=== PATIENT | male | born 1960 | race Caucasian/White ===

== ENCOUNTER 2019-07-05 08:50 | Day surgery (SDC) | payer OTHER ==
[~2019-07-05 08:50] MED LIST: Dextrose 5%-0.45% NaCl 1,000 ML IV SCH; Midazolam 1 MG/ML 2 ML SDV ONE; fentaNYL 100 MCG/2 ML SDV ONE
[2019-07-05] MEDS ORDERED: Lidocaine 1% 30 ML SDV INJECT ONE ×2 (08:51→10:52)
[2019-07-05] MEDS ORDERED: fentaNYL 100 MCG/2 ML SDV IV ONE ×4 (08:51→09:56)
[2019-07-05] MEDS ORDERED: Midazolam 1 MG/ML 2 ML SDV IV ONE ×8 (08:51→09:54)
[2019-07-05] MEDS ORDERED: Lidocaine 1% 30 ML SDV ONE (10:45)
--- NOTE | 2019-07-05 10:58 | CT ---
Clinical history: 59-year-old male "smoker" with post procedural (colonoscopy) abdominal distention. Scan technique: Volume acquisition of data emergency unenhanced CT scan of the abdomen, pelvis and chest obtained while the patient was lying supine on the Siemens multi slice CT scanner [place], [place]. All data archived in the PACS system for storage, reformatting axial/sagittal/coronal planes and study (soft tissue and lung windows). Interpretation: Abnormal. 1. Generalized pronounced gaseous distention of the abdomen i.e. large volume, free intraperitoneal air. 2. No current evidence of mediastinal air or pneumothorax. No subcutaneous emphysema. 3. Numerous diverticula in the sigmoid and both flexures of the colon. 4. No abdominal or pelvic mass lesion. Large hiatus hernia incarcerated in the lower middle mediastinum. 5. No free fluid in the abdomen or pelvis (peritoneum). 6. Cholelithiasis. Gallbladder liver spleen pancreas and adrenal glands unremarkable. Normal kidneys. 7. Normal cardiac silhouette and normal caliber thoracic/abdominal aorta and major branches. No aneurysm or dissection. Lower lumbar disc disease and arthritic changes osteopenic spine. CONCLUSION: Colon perforation.
--- NOTE | 2019-07-05 11:58 | DISCH ---
TRANSFER SUMMARY This is a transfer from [place] [facility] to [facility] in [place]. TRANSFER DATE: 07/05/2019. INTRODUCTION: This 59-year-old male had a colonoscopy today for a history of prior colon polyps. He had extensive sigmoid diverticulosis. I was able to advance the scope all the way to the cecum and confirmation of the cecum was made by visualization of the ileocecal valve. He did not have any recurrent polyps on withdrawal of the scope. There were no abnormalities except for these extensive diverticula in the sigmoid colon. Post removal of the air from the colon and withdrawal of the scope, the patient had a markedly distended abdomen still and complained of abdominal pain. His heart rate was erratic with occasional beats up to 190. His saturations were low and breath sounds were diminished. I got a CT scan on him, which showed gross free air within the abdomen. I then took him to the operating room and placed a 5 mm laparoscopic trocar infraumbilically to decompress the abdomen. This renewed his vital signs to normal. He then did not complain about any pain. I did not use cautery or biopsy at all during the colon procedure and this most likely represents a perforation of one of the diverticula. In any event, I cannot watch him here at [place] and made arrangements to transfer him to Dr. Blunt at [facility] in [place]. TRANSFER DIAGNOSIS: Perforated colon post colonoscopy with transfer. [facility] /[id number]
--- NOTE | 2019-07-05 15:01 | OR ---
DATE: 07/05/2019 PREOPERATIVE DIAGNOSIS: Personal history of prior colon polyps. POSTOPERATIVE DIAGNOSIS: Personal history of prior colon polyps. PROCEDURE: Total colonoscopy. ANESTHESIA: Conscious sedation with IV Versed and fentanyl. SPECIMEN: None. OPERATIVE FINDINGS: Extensive sigmoid diverticulosis. No recurrent polyps. RECOMMENDATION: Followup colonoscopy in 10 years for screening. PROCEDURE IN DETAIL: After adequate preparation, a colonoscope was inserted into the rectum. This was easily passed all the way to the cecum. Confirmation of the cecum was made by visualization of the ileocecal valve and palpation in the right lower quadrant. The bowel prep was excellent. On withdrawal of the scope, the only abnormality noted was significant sigmoid diverticulosis. I could not find any evidence of recurrent polyps. The rectal and anal exam is normal. Air was suctioned from the colon, and the scope removed. [facility] /[id number] cc: [facility]
== END 2019-07-05 11:43 ==
LOC: DL.ENDO 08:50
PROVIDERS: ATTEND Surgery
DX: Z12.11 Encounter for screening for malignant neoplasm of colon (principal); K57.30 Diverticulosis of large intestine without perforation or abscess without bleeding; Z86.010 Personal history of colon polyps
CPT/HCPCS: 45378; 74176; J2001; J2250; J3010; J7042; G0121